=== PATIENT | male | born 1940 | race Hispanic/Latino ===

== ENCOUNTER 2016-09-20 09:33 | Inpatient (IN) | payer MEDICARE ==
[2016-09-20 09:40] VITALS: O2SAT 96; BMI 27.4
--- NOTE | 2016-09-20 10:44 | ED PDOC ---
HPI: Altered Mental Status Time Seen by Provider: 09/20/16 09:48 Chief Complaint (Provider): AMS History Per: Patient, Family Additional Complaint(s): 76 yo male, no PMH thus far- being evaluated for early dementia, presents to ED in order to undergo crisis eval. Dr. Browning contacted ED and reports that pt had recent (-) MRI and EEG, bloodwork has also been WNL as well. Requested Pt to be admitted to Dr. Tyler after Pt medically cleared. Pt without any physical complaints. No homicidal or suicidal ideations. Pt's family at bedside and report that at night Pt aggressive, agitated and then has no recollection of what happened in the AM. Past Medical History Reviewed: Nursing Documentation, Vital Signs Vital Signs: Last Vital Signs Temp 97.9 F 09/20/16 09:38 Pulse 92 H 09/20/16 09:38 Resp 18 09/20/16 09:38 BP 135/71 09/20/16 09:38 Pulse Ox 96 09/20/16 09:38 - Medical History PMH: Dementia - Surgical History Surgical History: Denies: Pacemaker - Family History Family History: States: Unknown Family Hx - Living Arrangements Living Arrangements: With Family - Social History Current smoker - smoking cessation education provided: No Alcohol: Social Drugs: Denies - Home Medications Home Medications: Ambulatory Orders Medication Instructions Recorded ALPRAZolam [Xanax] 0.25 mg PO BID 09/20/16 QUEtiapine [SEROquel] 50 mg PO DAILY 09/20/16 - Allergies Allergies/Adverse Reactions: Allergies Allergy/AdvReac Type Severity Reaction Status Date / Time No Known Allergies Allergy Verified 07/23/14 09:57 Review of Systems ROS Statement: Except As Marked, All Systems Reviewed And Found Negative Physical Exam - Reviewed Nursing Documentation Reviewed: Yes Vital Signs Reviewed: Yes - Physical Exam Appears: Positive for: Well, Non-toxic, No Acute Distress Head Exam: Positive for: ATRAUMATIC, NORMAL INSPECTION, NORMOCEPHALIC Skin: Positive for: Normal Color, Warm, DRY Eye Exam: Positive for: EOMI, Normal appearance, PERRL ENT: Positive for: Normal ENT Inspection Neck: Positive for: Normal, Painless ROM Cardiovascular/Chest: Positive for: Regular Rate, Rhythm Respiratory: Positive for: CNT, Normal Breath Sounds Gastrointestinal/Abdominal: Positive for: Normal Exam, Bowel Sounds, Soft Back: Positive for: Normal Inspection Extremity: Positive for: Normal ROM Neurologic/Psych: Positive for: Alert, Oriented - Laboratory Results Result Diagrams: 09/20/16 11:13 09/20/16 11:13 - ECG O2 Sat by Pulse Oximetry: 96 Medical Decision Making Medical Decision Making: EKG: NSR at 72 bpm, no axis deviation, acute ST changes, as read by PA-C CXR: NAD, as read by PA-C CBC and COMP resulted WNL Alcohol (-) U.dip (-) leuks, nites or blood while in ED UA and UDS pending Pt able to be medically cleared for admission at this time. Pt underwent crisis eval, see note. To be admitted Dx: dementia ; Dr. Tyler Disposition - Clinical Impression Clinical Impression: Dementia - Patient ED Disposition Is Patient to be Admitted: Yes - Disposition Disposition Time: 13:03 Condition: STABLE - POA Present On Arrival: None
--- NOTE | 2016-09-20 11:14 | RAD ---
PROCEDURE: CHEST RADIOGRAPH, 1 VIEW HISTORY: med screening COMPARISON: Follow-up FINDINGS: LUNGS: The lungs are clear. PLEURA: No pneumothorax or pleural fluid seen. CARDIOVASCULAR: Normal. OSSEOUS STRUCTURES: No significant abnormalities. VISUALIZED UPPER ABDOMEN: Normal. OTHER FINDINGS: None. IMPRESSION: No active pulmonary disease.
[2016-09-20 11:26] LABS: BASO # 0.1 K/uL (0.0-0.2); BASO % 0.7 % (0.0-2.0); EOS # 0.2 K/uL (0.0-0.7); EOS % 2.5 % (0.0-4.0); HEMATOCRIT 45.7 % (35.0-51.0); LYMPH # 2.1 K/uL (1.0-4.3); LYMPH % 22.4 % (20.0-40.0); MEAN CELL VOLUME 87.3 fl (80.0-94.0); MEAN CORPUSCULAR HEMOGLOBIN 29.3 pg (27.0-31.0); MEAN CORPUSCULAR HGB CONC 33.6 g/dL (33.0-37.0); MEAN PLATELET VOLUME 8.6 fl (7.2-11.7); MONO # 0.8 K/uL (0.0-0.8); MONO % 8.2 % (0.0-10.0); NEUT # 6.1 K/uL (1.8-7.0); NEUT % 66.2 % (50.0-75.0); RED CELL DISTRIBUTION WIDTH 13.4 % (11.5-14.5); WHITE BLOOD COUNT 9.3 K/uL (4.8-10.8)
[2016-09-20 11:32] LABS: ALB/GLOB RATIO 1.3 (1.0-2.1); ALCOHOL SERUM < 10 mg/dl (0-10); ALKALINE PHOSPHATASE 90 U/L (38-126); ALT/SGPT 34 U/L (21-72); AST/SGOT 29 U/L (17-59); BILIRUBIN,TOTAL 0.6 mg/dl (0.2-1.3); BLOOD UREA NITROGEN 19 mg/dl (9-20); CALCIUM 9.6 mg/dL (8.4-10.2); CARBON DIOXIDE 25 mmol/L (22-30); CHLORIDE 107 mmol/L (98-107); GFR AFRICAN-AMERICAN > 60; GLUCOSE,RANDOM 104 mg/dL (75-110); POTASSIUM 4.3 MMOL/L (3.6-5.0); SODIUM 147 mmol/l (132-148); TOTAL PROTEIN 7.7 G/DL (6.3-8.2)
[2016-09-20 14:35] LABS: RBC URINE 1 /hpf (0-3); URINE BILIRUBIN NEGATIVE (NEGATIVE); URINE BLOOD NEGATIVE (NEGATIVE); URINE COLOR YELLOW (YELLOW); URINE GLUCOSE (UA) NEG (Normal); URINE KETONE NEGATIVE (NEGATIVE); URINE LEUKOCYTE ESTERASE NEG Leu/uL (Negative); URINE PROTEIN NEGATIVE (NEGATIVE); URINE UROBILINOGEN 0.2-1.0 mg/dL (0.2-1.0); WBC URINE < 1 /hpf (0-5)
--- NOTE | 2016-09-20 16:48 | CARD ---
APPROVED REPORT EKG Measurement Heart [id number] [id number] <Conclusion> Normal sinus rhythm Normal ECG
[2016-09-20] MEDS ORDERED: Magnesium Hydroxide Susp 30 ml UD PO PRN (16:56)
[2016-09-20] MEDS ORDERED: Alum-Mag Hydrox-Simethicone Susp (30 mL) PO PRN (16:57)
[2016-09-20] MEDS ORDERED: Bismuth Subsalicylate 262 mg/15 ml Sus (240 ml) PO PRN (16:58)
[2016-09-21 07:35] LABS: HEMATOCRIT 48.6 % (35.0-51.0); MEAN CELL VOLUME 87.6 fl (80.0-94.0); MEAN CORPUSCULAR HEMOGLOBIN 28.6 pg (27.0-31.0); MEAN CORPUSCULAR HGB CONC 32.7 g/dL (33.0-37.0); RED CELL DISTRIBUTION WIDTH 13.6 % (11.5-14.5); WHITE BLOOD COUNT 10.2 K/uL (4.8-10.8)
[2016-09-21 07:58] LABS: IRON 96 ug/dL (49-181)
[2016-09-21 08:06] LABS: ALB/GLOB RATIO 1.3 (1.0-2.1); ALKALINE PHOSPHATASE 81 U/L (38-126); ALT/SGPT 35 U/L (21-72); AST/SGOT 29 U/L (17-59); BLOOD UREA NITROGEN 23 mg/dl (9-20); CALCIUM 9.5 mg/dL (8.4-10.2); CARBON DIOXIDE 26 mmol/L (22-30); CHLORIDE 105 mmol/L (98-107); GFR AFRICAN-AMERICAN > 60; GLUCOSE,RANDOM 102 mg/dL (75-110); POTASSIUM 4.4 MMOL/L (3.6-5.0); SODIUM 144 mmol/l (132-148); TOTAL PROTEIN 7.5 G/DL (6.3-8.2)
[2016-09-21 08:15] LABS: T4 8.44 ug/dl (5.5-11.0)
[2016-09-21 08:28] LABS: THYROID STIMULATING HORMONE 1.42 mIU/ML (0.46-4.68)
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
--- NOTE | 2016-09-21 15:28 | CP.PCM.CON ---
History of Present Illness - History of Present Illness History of Present Illness: 76 yo male with no significant PMH admitted at [facility] because of bizarre and odd behaviour. Review of Systems - Review of Systems All systems: reviewed and no additional remarkable complaints except (aside from those mentioned above, 12 point system review were negative by me) Past Patient History - Infectious Disease Hx of Infectious Diseases: None - Tetanus Immunizations Tetanus Immunization: Unknown - Past Social History Smoking Status: Never Smoked Alcohol: Social Drugs: Denies - CARDIAC Hx Cardiac Disorders: No Hx Hypertension: No - PULMONARY Hx Respiratory Disorders: No Hx Tuberculosis: No - NEUROLOGICAL Hx Neurological Disorder: No HX Cerebrovascular Accident: No Hx Seizures: No - HEENT Hx HEENT Problems: No - RENAL Hx Chronic Kidney Disease: No - ENDOCRINE/METABOLIC Hx Endocrine Disorders: No - HEMATOLOGICAL/ONCOLOGICAL Hx Blood Disorders: No Hx Cancer: No Hx Human Immunodeficiency Virus (HIV): No - INTEGUMENTARY Hx Dermatological Problems: No - MUSCULOSKELETAL/RHEUMATOLOGICAL Hx Musculoskeletal Disorders: Yes (Carpal tunnel) Hx Falls: No - GASTROINTESTINAL Other/Comment: Polyps in stomach - GENITOURINARY/GYNECOLOGICAL Hx Genitourinary Disorders: No Hx Sexually Transmitted Disorders: No - PSYCHIATRIC Hx Depression: Yes Hx Substance Use: No - SURGICAL HISTORY Hx Surgeries: Yes Hx Cholecystectomy: Yes Other/Comment: Stomach polyps,appendectomy - ANESTHESIA Hx Anesthesia: Yes Hx Anesthesia Reactions: No Hx Malignant Hyperthermia: No Meds Allergies/Adverse Reactions: Allergies Allergy/AdvReac Type Severity Reaction Status Date / Time No Known Allergies Allergy Verified 07/23/14 09:57 - Medications Medications: Current Medications Acetaminophen (Tylenol 325mg Tab) 650 mg PO Q4 PRN PRN Reason: Pain, Mild (1-3) Al Hydrox/Mg Hydrox/Simethicone (Maalox Plus 30 Ml) 30 ml PO Q4 PRN PRN Reason: Indigestion / Heartburn Alprazolam (Xanax) 0.25 mg PO HS PRN PRN Reason: Anxiety Stop: 09/28/16 14:58 Bismuth Subsalicylate (Pepto-Bismol) 524 mg PO Q4 PRN PRN Reason: Diarrhea Lorazepam (Ativan) 0.5 mg PO Q6 PRN PRN Reason: Agitation Lorazepam (Ativan) 0.5 mg PO HS PRN PRN Reason: Insomnia Magnesium Hydroxide (Milk Of Magnesia) 30 ml PO HS PRN PRN Reason: Constipation Quetiapine Fumarate (Seroquel) 50 mg PO HS DANICA Quetiapine Fumarate (Seroquel) 50 mg PO DAILY@1700 DANICA Physical Exam - Constitutional Appears: No Acute Distress - Head Exam Head Exam: absent: ATRAUMATIC - Eye Exam Eye Exam: absent: Scleral icterus - ENT Exam ENT Exam: Mucous Membranes Moist - Neck Exam Neck exam: Negative for: Meningismus - Respiratory Exam Respiratory Exam: absent: Rhonchi, Wheezes, Respiratory Distress - Cardiovascular Exam Cardiovascular Exam: REGULAR RHYTHM, +S1, +S2 - GI/Abdominal Exam GI & Abdominal Exam: Soft. absent: Tenderness - Rectal Exam Rectal Exam: Deferred - Extremities Exam Extremities exam: Negative for: pedal edema - Neurological Exam Neurological exam: Alert, Oriented x3 - Psychiatric Exam Psychiatric exam: Normal Affect - Skin Skin Exam: Dry, Intact Results - Vital Signs Recent Vital Signs: Last Vital Signs Temp 97.3 F L 09/21/16 06:11 Pulse 78 09/21/16 06:11 Resp 20 09/21/16 06:11 BP 131/88 09/21/16 06:11 Pulse Ox 96 09/20/16 13:15 - Labs Result Diagrams: 09/21/16 05:30 09/21/16 05:30 Labs: Laboratory Results - last 24 hr 09/21/16 09/21/16 05:30 06:00 WBC 10.2 RBC 5.55 Hgb 15.9 Hct 48.6 MCV 87.6 MCH 28.6 MCHC 32.7 L RDW 13.6 Plt Count 305 Sodium 144 Potassium 4.4 Chloride 105 Carbon Dioxide 26 Anion Gap 18 BUN 23 H Creatinine 1.1 Est GFR ( Amer) > 60 Est GFR (Non-Af Amer) > 60 Random Glucose 102 Calcium 9.5 Iron 96 TIBC 239 L % Saturation 40 Ferritin 336.0 Total Bilirubin 1.0 AST 29 ALT 35 Alkaline Phosphatase 81 Total Protein 7.5 Albumin 4.2 Globulin 3.4 Albumin/Globulin Ratio 1.3 Vitamin B12 631 Free T4 1.09 Thyroxine (T4) 8.44 TSH 3rd Generation 1.42 Assessment & Plan (1) Bizarre behavior Status: Acute Comment: psyche is managing
[2016-09-21 23:16] LABS: FOLATE > 20.0 ng/mL
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
--- NOTE | 2016-09-23 12:38 | PCM.PYCHPN ---
Psychiatric Progress Note - Psychiatric Progress Note Patient seen today, length of contact: Patient evaluated, case discussed with team, chart reviewed Patient Chief Complaint: "I'm good" Problems Identified/Issues Discussed: Patient with no acute complaints. He denies depression/anxiety/hallucinations. He is more appropriate to staff and press writer. When asked if he understand that its not appropriate for him to make sexual advances towards women, he said that he only makes them towards his and the press writer. He has poor insight into his dementia or the reason that he needs acute hospitalization. Medication Change: No Medical Record Reviewed: Yes Mental Status Examination - Cognitive Function Orientation: Person, Place Memory: Impaired Attention: Poor Concentration: Poor Association: Loose Fund of Knowledge: Poor Decription of patient's judgement and insights: Poor insight/ limited judgment - Mood Mood: Neutral - Affect Affect: Broad - Speech Speech: Appropriate - Formal Thought Process Formal Thought Process: Loosening of associations Psychotic Thoughts and Behaviors: Denies AH/VH/paranoia/delusions - Suicidal Ideation Suicidal Ideation: No - Homicidal Ideation Homicidal Ideation: No Goal/Treatment Plan - Goal/Treatment Plan Need for Continued Stay: Remain at risks for inpatient hospitalization, Discharge may exacerbated symptoms Progress Toward Problem(s) and Goals/Treatment Plan: 76 yo [place] male with decline in functioning, memory, now exhibiting aggressive and hypersexual behaviors, needs acute admission for treatment and stabilization. Patient is starting to improve clinically. -Xanax stopped -Continue Seroquel 50 mg Daily@1700/ 50 mg PO HS -Case discussed with patient's family -Patient denies acute depressive or anxiety symptoms -Hospitalist consult appreciated Estimated Date of D/C: 09/27/16
--- NOTE | 2016-09-24 09:53 | PCM.PYCHPN ---
Psychiatric Progress Note - Psychiatric Progress Note Patient seen today, length of contact: Patient evaluated, case discussed with team, chart reviewed Patient Chief Complaint: "I'm good" Problems Identified/Issues Discussed: Patient is improving clinically. He is more appropriate towards staff and less sexually inappropriate. He is calm, pleasant and engages appropriately with others and in groups. He has poor insight into his dementia or the reason that he needs acute hospitalization. Medication Change: Yes (Change Seroquel to 100 mg PO Daily@1700) Medical Record Reviewed: Yes Mental Status Examination - Cognitive Function Orientation: Person, Place Memory: Impaired Attention: Poor Concentration: Poor Association: Loose Fund of Knowledge: Poor Decription of patient's judgement and insights: Poor insight/ judgment improving - Mood Mood: Neutral - Affect Affect: Broad - Speech Speech: Appropriate - Formal Thought Process Formal Thought Process: Loosening of associations Psychotic Thoughts and Behaviors: Denies AH/VH/paranoia - Suicidal Ideation Suicidal Ideation: No - Homicidal Ideation Homicidal Ideation: No Goal/Treatment Plan - Goal/Treatment Plan Need for Continued Stay: Remain at risks for inpatient hospitalization, Discharge may exacerbated symptoms Progress Toward Problem(s) and Goals/Treatment Plan: 76 yo Citizen [place] male with decline in functioning, memory, now exhibiting aggressive and hypersexual behaviors, needs acute admission for treatment and stabilization. Patient is starting to improve clinically. -Xanax stopped -Change Seroquel to 100 mg PO Daily@1700 -Case discussed with patient's family -Patient denies acute depressive or anxiety symptoms -Hospitalist consult appreciated Estimated Date of D/C: 09/27/16
--- NOTE | 2016-09-25 12:50 | PCM.PYCHPN ---
Psychiatric Progress Note - Psychiatric Progress Note Patient seen today, length of contact: Patient evaluated, case discussed with team, chart reviewed Patient Chief Complaint: "I'm good" Problems Identified/Issues Discussed: Patient is improving clinically. He is more appropriate towards staff and less sexually inappropriate. He does wink at women at times, but has not made any sexual advances. He is calm, pleasant and engages appropriately with others and in groups. He has poor insight into his dementia or the reason that he needs acute hospitalization. Medication Change: Yes (Increase Seroquel to 25 mg PO Daily/ 100 mg PO HS) Medical Record Reviewed: Yes Mental Status Examination - Cognitive Function Orientation: Person, Place, Situation Memory: Impaired Attention: Poor Concentration: Poor Association: Loose Fund of Knowledge: Poor Decription of patient's judgement and insights: Poor I/ improving judgment - Mood Mood: Neutral - Affect Affect: Broad - Speech Speech: Appropriate - Formal Thought Process Formal Thought Process: Loosening of associations Psychotic Thoughts and Behaviors: NO AH/VH/paranoia - Suicidal Ideation Suicidal Ideation: No - Homicidal Ideation Homicidal Ideation: No Goal/Treatment Plan - Goal/Treatment Plan Need for Continued Stay: Remain at risks for inpatient hospitalization, Discharge may exacerbated symptoms Progress Toward Problem(s) and Goals/Treatment Plan: 76 yo [place] male with decline in functioning, memory, presented with aggressive and hypersexual behaviors. Patient is starting to improve clinically. -Xanax stopped -Increase Seroquel to 25 mg PO AM/ 100 mg PO HS -Case discussed with patient's family -Patient denies acute depressive or anxiety symptoms -Hospitalist consult appreciated Estimated Date of D/C: 09/27/16
--- NOTE | 2016-09-26 12:08 | PCM.PYCHPN ---
Psychiatric Progress Note - Psychiatric Progress Note Patient seen today, length of contact: Patient evaluated, case discussed with team, chart reviewed Patient Chief Complaint: "I'm good" Problems Identified/Issues Discussed: No significant events. Patient is improving clinically. He is more appropriate towards staff and not sexually inappropriate to staff or insurance writer. He reported some dizziness yesterday. He is calm, pleasant and engages appropriately with others and in groups. His judgment is improving. Medication Change: Yes (Lower Seroquel back to 100 mg PO Daily @1700) Medical Record Reviewed: Yes Mental Status Examination - Cognitive Function Orientation: Person, Place, Situation Memory: Impaired Attention: Poor Concentration: Poor Association: Loose Fund of Knowledge: Poor Decription of patient's judgement and insights: Improving I/J - Mood Mood: Neutral - Affect Affect: Broad - Speech Speech: Appropriate - Formal Thought Process Formal Thought Process: No Impairment Psychotic Thoughts and Behaviors: NO AH/VH/paranoia - Suicidal Ideation Suicidal Ideation: No - Homicidal Ideation Homicidal Ideation: No Goal/Treatment Plan - Goal/Treatment Plan Need for Continued Stay: Remain at risks for inpatient hospitalization, Discharge may exacerbated symptoms Progress Toward Problem(s) and Goals/Treatment Plan: 76 yo [place] male with decline in functioning, memory, presented with aggressive and hypersexual behaviors, now improving. -Xanax stopped -Lower Seroquel to 100 mg PO Daily@1700 -Case discussed with patient's family -Patient denies acute depressive or anxiety symptoms -Hospitalist consult appreciated -Discharge to home tomorrow Estimated Date of D/C: 09/27/16
[2016-09-27 15:55] VITALS: BP 131/71; PULSE 98; RESP 20; TEMP 97.9
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
== END 2016-09-27 18:00 | disposition home or self-care (01) | DRG 884 ==
LOC: H.ER 09:33 → H.ERHOLD 11:56 → H.STEP 14:39
PROVIDERS: ADMIT Psychiatry & Neurology Psychiatry; ATTEND Psychiatry & Neurology Psychiatry
PROC: GZ51ZZZ Individual Psychotherapy, Behavioral (ICD-10-PCS; 2016-09-20)
PROC: GZHZZZZ Group Psychotherapy (ICD-10-PCS; principal; 2016-09-23)
DX: F03.91 Unspecified dementia, unspecified severity, with behavioral disturbance (principal); F39 Unspecified mood [affective] disorder; Z90.49 Acquired absence of other specified parts of digestive tract